=== PATIENT | male | born 1955 | race Caucasian/White ===

== ENCOUNTER → 2016-12-19 | Outpatient (CLI) | payer BC ==
[~2016-12-19] MED LIST: ANAPROX DS550 MG PO; TRAMADOL HCL50 MG PO
[2016-12-19 15:51] LABS: BASO # 0.1 10*3/uL (0.0-0.1); BASO % 1.1 % (0.0-1.0); EOS # 0.5 10*3/uL (0.0-0.4); EOS % 5.8 % (1.0-4.0); HEMATOCRIT 48.1 % (42.0-52.0); LYMPH # 2.5 10*3/uL (1.3-4.4); LYMPH % 29.5 % (27.0-41.0); MEAN CELL VOLUME 87.9 fl (80.0-94.0); MEAN CORPUSCULAR HGB 31.1 pg (27.0-31.0); MEAN CORPUSCULAR HGB CONC 35.3 g/dl (33.0-37.0); MEAN PLATELET VOLUME 8.8 fl (9.6-12.3); MONO # 0.6 10*3/uL (0.1-1.0); NEUT # 4.7 10*3/uL (2.3-7.9); NEUT % 55.3 % (47.0-73.0); PLATELET COUNT AUTOMATED 226 10*3/uL (130-400); RED BLOOD COUNT 5.47 10*6/uL (4.50-5.90); RED CELL DISTRI WIDTH 13.4 % (0-14.5); WHITE BLOOD COUNT 8.4 10*3/uL (4.8-10.8)
[2016-12-19 16:24] LABS: ALBUMIN 3.7 gm/dl (3.1-4.5); ALKALINE PHOSPHATASE 96 U/L (45-117); BILIRUBIN, DIRECT 0.1 mg/dL (0.0-0.2); BUN 16 mg/dl (7-24); CHLORIDE 105 mmol/L (98-107); CHOLESTEROL 164 mg/dL (<200); CREATININE 1.04 mg/dL (0.70-1.30); HDL CHOLESTEROL 34 mg/dl (40-60); LDL CHOLESTEROL 72 mg/dL (9-159); POTASSIUM 3.6 mmol/L (3.5-5.1); SGOT/AST 27 IU/L (3-35); SGPT/ALT 40 U/L (12-78); SODIUM 141 mmol/L (136-145); THYROXINE (T4) TOTAL 7.8 ug/dl (4.5-12.1); TOTAL PROTEIN 7.7 gm/dL (6.4-8.2); TRIGLYCERIDES 290 mg/dl (<150); VLDL CHOLESTEROL 58 mg/dL (6-40)
== END | disposition home or self-care (01) ==
LOC: LAB 15:19
PROVIDERS: Family Medicine
DX: Z12.5 Encounter for screening for malignant neoplasm of prostate (principal); I10 Essential (primary) hypertension; R73.9 Hyperglycemia, unspecified

== ENCOUNTER → 2017-03-24 | Outpatient (CLI) | payer BC ==
[2017-03-24 11:15] LABS: BASO # 0.1 10*3/uL (0.0-0.1); BASO % 1.3 % (0.0-1.0); EOS # 0.5 10*3/uL (0.0-0.4); EOS % 8.3 % (1.0-4.0); HEMATOCRIT 44.9 % (42.0-52.0); HEMOGLOBIN 16.2 g/dl (14.0-18.0); LYMPH # 1.5 10*3/uL (1.3-4.4); LYMPH % 24.8 % (27.0-41.0); MEAN CELL VOLUME 88.2 fl (80.0-94.0); MEAN CORPUSCULAR HGB 31.8 pg (27.0-31.0); MEAN CORPUSCULAR HGB CONC 36.1 g/dl (33.0-37.0); MONO # 0.6 10*3/uL (0.1-1.0); MONO % 10.2 % (3.0-9.0); NEUT # 3.4 10*3/uL (2.3-7.9); NEUT % 54.8 % (47.0-73.0); PLATELET COUNT AUTOMATED 178 10*3/uL (130-400); RED BLOOD COUNT 5.09 10*6/uL (4.50-5.90); RED CELL DISTRI WIDTH 13.1 % (0-14.5); WHITE BLOOD COUNT 6.2 10*3/uL (4.8-10.8)
[2017-03-24 11:42] LABS: ALBUMIN 3.6 gm/dl (3.1-4.5); BILIRUBIN, DIRECT 0.1 mg/dL (0.0-0.2); BUN 19 mg/dl (7-24); CHLORIDE 105 mmol/L (98-107); CREATININE 0.86 mg/dL (0.70-1.30); POTASSIUM 3.6 mmol/L (3.5-5.1); SGOT/AST 28 IU/L (3-35); SGPT/ALT 39 U/L (12-78); SODIUM 141 mmol/L (136-145); TOTAL PROTEIN 7.4 gm/dL (6.4-8.2)
[2017-03-24 11:43] LABS: ALKALINE PHOSPHATASE 96 U/L (45-117)
== END | disposition home or self-care (01) ==
LOC: LAB 10:52
PROVIDERS: Family Medicine
DX: I10 Essential (primary) hypertension (principal)

== ENCOUNTER → 2017-07-11 | Outpatient (CLI) | payer BC | END | disposition home or self-care (01) | LOC: RAD 15:40 | DX: M25.562 Pain in left knee (principal); M25.462 Effusion, left knee ==

== ENCOUNTER 2017-08-06 14:35 | Emergency (ER) | payer BC ==
[~2017-08-06] VITALS: Wt 102.1 kg
[2017-08-06 15:18] LABS: BASO # 0.1 10*3/uL (0.0-0.1); BASO % 0.7 % (0.0-1.0); EOS # 0.5 10*3/uL (0.0-0.4); EOS % 4.1 % (1.0-4.0); HEMATOCRIT 49.1 % (42.0-52.0); HEMOGLOBIN 17.1 g/dl (14.0-18.0); LYMPH # 2.1 10*3/uL (1.3-4.4); LYMPH % 19.4 % (27.0-41.0); MEAN CELL VOLUME 88.3 fl (80.0-94.0); MEAN CORPUSCULAR HGB 30.8 pg (27.0-31.0); MEAN CORPUSCULAR HGB CONC 34.8 g/dl (33.0-37.0); MEAN PLATELET VOLUME 8.9 fl (9.6-12.3); MONO % 8.7 % (3.0-9.0); NEUT # 7.4 10*3/uL (2.3-7.9); NEUT % 66.7 % (47.0-73.0); PLATELET COUNT AUTOMATED 242 10*3/uL (130-400); RED BLOOD COUNT 5.56 10*6/uL (4.50-5.90); RED CELL DISTRI WIDTH 13.2 % (0-14.5)
[2017-08-06 15:34] LABS: ALKALINE PHOSPHATASE 120 U/L (45-117); BUN 19 mg/dl (7-24); CHLORIDE 98 mmol/L (98-107); CREATININE 1.05 mg/dL (0.70-1.30); POTASSIUM 3.7 mmol/L (3.5-5.1); SGOT/AST 19 IU/L (3-35); SGPT/ALT 29 U/L (12-78); SODIUM 139 mmol/L (136-145); TOTAL PROTEIN 8.5 gm/dL (6.4-8.2)
[2017-08-06] MEDS ORDERED: VIBRAMYCIN100 MG PO (16:23)
== END 2017-08-06 16:28 | disposition home or self-care (01) ==
LOC: ED 14:35
PROVIDERS: Nurse Practitioner Family
DX: M25.561 Pain in right knee (principal); M25.562 Pain in left knee

== ENCOUNTER → 2017-11-01 | Outpatient (CLI) | payer BC ==
[~2017-11-01] MED LIST changes: +VIBRAMYCIN100 MG PO
[2017-11-01 17:13] LABS: BASO # 0.1 10*3/uL (0.0-0.1); BASO % 0.7 % (0.0-1.0); EOS # 0.4 10*3/uL (0.0-0.4); EOS % 3.7 % (1.0-4.0); HEMATOCRIT 49.7 % (42.0-52.0); HEMOGLOBIN 16.8 g/dl (14.0-18.0); LYMPH # 1.8 10*3/uL (1.3-4.4); LYMPH % 17.2 % (27.0-41.0); MEAN CELL VOLUME 89.5 fl (80.0-94.0); MEAN CORPUSCULAR HGB 30.3 pg (27.0-31.0); MEAN CORPUSCULAR HGB CONC 33.8 g/dl (33.0-37.0); MEAN PLATELET VOLUME 9.1 fl (9.6-12.3); MONO % 9.7 % (3.0-9.0); NEUT # 7.3 10*3/uL (2.3-7.9); NEUT % 68.2 % (47.0-73.0); PLATELET COUNT AUTOMATED 250 10*3/uL (130-400); RED BLOOD COUNT 5.55 10*6/uL (4.50-5.90); RED CELL DISTRI WIDTH 12.7 % (0-14.5); WHITE BLOOD COUNT 10.7 10*3/uL (4.8-10.8)
[2017-11-01 17:19] LABS: URIC ACID 10.3 mg/dL (3.5-7.2)
== END | disposition home or self-care (01) ==
LOC: LAB 16:38
PROVIDERS: Orthopaedic Surgery
DX: M10.9 Gout, unspecified (principal)

== ENCOUNTER → 2019-03-13 | Outpatient (CLI) | payer BC ==
[~2019-03-13] MED LIST changes: +COREG25 MG PO; +ECOTRIN81 M1 PO; +FISH OIL 1,0001 EAC4 PO; +KLOR-CON M2020 ME1 PO; +LASIX40 MG PO; +LISINOPRIL-HCT1 EACH PO; +VITAMIN D31000 UNI1 PO; +VITAMIN E200 UNI4 PO; +ZYLOPRIM300 MG PO
--- NOTE | ~2019-03-13 | ST ---
[place], [place] EXERCISE STRESS TEST REPORT NAME: [facility]IER[facility]Z [id number] UNIT #: [id number] ROOM: DOCTOR: SANJANA ELIZABETH BIRTHDATE: [birth year] DOS: 03/13/2019 INDICATION: Chest pain. PROTOCOL: Exercise treadmill test, Akhil protocol. Baseline EKG showed normal sinus rhythm, 63 beats per minute with normal axis and normal intervals. No resting ST or T-wave abnormalities. Baseline blood pressure is 128/82 mmHg. The patient exercised for a total of 9 minutes achieving a peak heart rate of 157, which is 99% of age-predicted maximum. Peak blood pressure was 180/92 mmHg. Total workload achieved was 10 mets. No chest pain was reported. Stress EKG showed no evidence of ischemia and no arrhythmias were noted. Occasional PVCs noted in exercise and in recovery. IMPRESSION: 1. No evidence of ischemia on stress EKG. 2. Normal blood pressure response to exercise. 3. Normal heart rate recovery. 4. Above average functional capacity for age. 5. Low risk exercise treadmill test. Dr. SANJANA ELIZABETH MD CM:STRESS:EXERCISE STRESS TEST REPORT [id number] SANJANA ELIZABETH
--- NOTE | 2019-03-13 08:45 | NUR ---
INFORMED CONSENT OBTAINED FOR AN EXERCISE STRESS TEST WITH DR. ELIZABETH. RESTING EKG NSR WITH A HT RT 63, AND A BP OF 128/82 IN THE SUPINE POSITION, AND A HT RT OF 73, AND BP OF 124/88 IN THE STANDING POSITION. PT COMPLETED 9:00 MINUTES OF A ADONIS PROTOCOL WITH COMPLETION OF STAGE III AT 3.4 MPH AND 14% GRADE. REACHED A PEAK HT RT OF 157, WHICH IS 97% OF PREDICTED MAX WITH A PEAK BP OF 180/92. TEST TERMINATED DUE TO FATIGUE. DENIES CHEST PAIN. EKG NEGATIVE. HAS A GOOD EXERCISE TOLERANCE. LAST RECOVERY HT RT OF 95, WITH A BP OF 148/90. DISCHARGED HOME IN STABLE CONDITION.
== END | disposition home or self-care (01) ==
LOC: CARD 00:23
DX: R07.9 Chest pain, unspecified (principal)